=== PATIENT | female | born 1935 | race Caucasian/White ===

== ENCOUNTER 2017-11-23 09:44 | Emergency (ER) | payer OTHER ==
[~2017-11-23] VITALS: Ht 167.6 cm; Wt 67.9 kg
[2017-11-23 09:54] VITALS: TEMP 36.8; Ht 167.6 cm; Wt 67.9 kg
--- NOTE | 2017-11-23 10:20 | EMERGENCY ROOM VISIT NOTE ---
History Report prepared by Homer: Rafa Esquivel Under the Supervision of: Dr. Oscar Paez M.D. 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 Negative abdominal pain and falls. The patient states that she was in an accident several years ago when she injured her right knee. She notes that her right knee is bothering her. She uses a walker to ambulate. She notes that she has been using a topical medication for her knee. The patient resides at [facility]. HPI is limited secondary to patient's mental state. 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 She denies any falls. Review of Systems ROS is limited secondary to patient's mental state. Past Medical & Surgical Medical Problems: (1) Dementia (2) Osteoarthritis Family History No pertinent family history reported. Social History Smoking Status: Never Smoker Smokeless Tobacco Use: No Alcohol Use: none Drug Use: none Housing Status: assisted Occupation Status: unemployed Current/Historical Medications Scheduled Buspirone HCl (Buspirone HCl), 10 MG PO QAM Loratadine (Claritin), 10 MG PO DAILY Multivitamin (Multivitamin), 1 TAB PO DAILY Sennosides-Docusate Sodium (Senna S), 1 TAB PO BID Scheduled PRN Acetaminophen (Tylenol), 325 MG PO Q4 PRN for Fever Ondansetron Hcl (Zofran), 4 MG PO Q8 PRN for Nausea Allergies Coded Allergies: No Known Allergies (Unverified , 11/23/17) Physical Exam Vital Signs Date Time Temp Pulse Resp B/P (MAP) Pulse Ox O2 Delivery O2 Flow Rate FiO2 11/23/17 12:50 68 20 138/75 95 11/23/17 11:10 84 18 146/82 95 Room Air 11/23/17 09:54 36.8 88 18 127/69 97 Room Air Physical Exam GENERAL: Awake, alert, well-appearing, NAD. GCS 15 HENT: Normocephalic, atraumatic. EYES: Normal conjunctiva. Sclera non-icteric. NECK: Supple. No nuchal rigidity. FROM. RESPIRATORY: CTAB, no rhonchi, wheezing, crackles CARDIAC: RRR, no MRG ABDOMEN: Soft, NTND, BS+ MSK: No chest wall TTP, no LE edema. Large scar over right anterior knee. Right knee greater than left. Without erythema or warmth. Good knee flexion and extension of the knee. NVI distally. NEURO: GCS 15, CN 2-12 intact, moves all 4s on command. tangential thought process. A&Ox2 SKIN: No rash or jaundice noted. Medical Decision & Procedures ER Provider Diagnostic Interpretation: Radiology results as stated below per my review and radiologist interpretation: R KNEE 3 VIEWS CLINICAL HISTORY: 82 years-old Female presenting with prior knee surgery? dementia. TECHNIQUE: Frontal, lateral, and sunrise views of the right knee were obtained. COMPARISON: None. FINDINGS: Osteopenia limits evaluation for nondisplaced fracture. Significant joint space loss in the medial greater than lateral compartments. Osteophytosis. Subchondral sclerosis in the medial compartment. Osteophytosis and significant subchondral irregularity in the patellofemoral compartment. No patellar subluxation. No significant joint effusion. No displaced fracture or acute malalignment. Calcification or postsurgical change noted along the lateral and medial aspects of the joint possibly suggesting prior MCL/LCL injuries. IMPRESSION: No acute osseous injury. Advanced tricompartmental degenerative changes. Electronically signed by: Abhishek Lewis M.D. 11/23/2017 10:46 AM Dictated Date/Time: 11/23/2017 10:44 AM ED Course 1006: The patient was evaluated in room B2. A complete history and physical exam was performed. 1108: I reassessed the patient at this time. She is feeling better and resting comfortably. I discussed the results and treatment plan with the patient. I answered all pertaining questions that she had. She expressed understanding and verbalized agreement. The patient will be discharged home. Medical Decision The patient is a 82 year old white female with a past medical history of dementia and osteoarthritis who presents to the ED with right knee pain beginning an unknown time ago as the patient's history is limited by her dementia. Triage Nursing notes reviewed. The patient's presentation and history were concerning for strain, sprain, dislocation, fracture, GJD, and OA. Patient was seen and evaluated the bedside. Patient does have a history of osteoarthritis as well as dementia. Patient exam does have a noticeable right greater than left knee however there is no effusion. She does have a large surgical scar likely indicative of prior procedure. Patient is able to flex and extend and does not have any neuro deficits distally. Given the patient's crushable history the patient did have knee films were completed. Patient denied wanting any medication for pain control she does not have a lot of pain. Patient does not show any evidence of obvious joint laxity. Patient films which showed advanced tricompartmental syndrome. Patient had no evidence of fracture or dislocation. Patient had good flexion and extension of the knee. Patient's compartments were soft less likely compartment syndrome. No calor or redness less likely hemarthrosis, septic arthritis, gout or pseudogout. Patient was vascularly intact. Patient had no neurovascular deficits. Patient was deemed suitable for outpatient follow-up and treatment. Patient was given strict follow-up, discharge, and return precautions. All questions were answered. Patient was deemed suitable for outpatient follow-up at this time. Patient agreed with the plan of care and was safely discharged home. Medication Reconcilliation Current Medication List: was personally reviewed by me Blood Pressure Screening Patient's blood pressure: Elevated blood pressure Blood pressure disposition: Referred to PCP Impression Primary Impression: Chronic pain of right knee Additional Impressions: Degenerative joint disease of right knee Dementia Scribe Attestation The scribe's documentation has been prepared under my direction and personally reviewed by me in its entirety. I confirm that the note above accurately reflects all work, treatment, procedures, and medical decision making performed by me. Departure Information Dispostion Home / Self-Care Referrals [facility] (PCP) Forms HOME CARE DOCUMENTATION FORM, IMPORTANT VISIT INFORMATION Patient Instructions ED Knee Pain UKO, ED RICE, Knee Pain, My [facility] [address] Additional Instructions Please return to the emergency department if you have worsening or recurrent symptoms not amenable to at-home treatment. Please call for a follow-up appointment with her primary care physician. Please take your medications as prescribed. If you have other concerns and/or complaints please feel free to also call your primary care physician's office or return the ED for further evaluation, management, and treatment. You were found to have an elevated blood pressure today (>120 sytolic or >90 diastolic). Per medicare guidelines, you need to follow up with this blood pressure screening with your Primary Care Physician (PCP). For a new PCP call [phone]. You may take tylenol 1000 mg every 6 hours as needed for pain. Take your medications as prescribed. You have been examined and treated today on an emergency basis only. This is not a substitute for, or an effort to provide, complete comprehensive medical care. It is impossible to recognize and treat all injuries or illnesses in a single emergency department visit. It is therefore important that you follow up closely with [facility], your PCP, and/or your specialist(s). Call as soon as possible for an appointment. Thank you for your time and consideration. I look forward to speaking with you again soon. Please don't hesitate to call us if you have any questions. Problem Qualifiers Additional Impressions: Degenerative joint disease of right knee Osteoarthritis type: unspecified Qualified Codes: M17.11 - Unilateral primary osteoarthritis, right knee Dementia Dementia type: unspecified type Dementia behavioral disturbance: without behavioral disturbance Qualified Codes: F03.90 - Unspecified dementia without behavioral disturbance
--- NOTE | 2017-11-23 10:47 | DIAGNOSTIC IMAGING REPORT ---
R KNEE 3 VIEWS CLINICAL HISTORY: 82 years-old Female presenting with prior knee surgery? dementia. TECHNIQUE: Frontal, lateral, and sunrise views of the right knee were obtained. COMPARISON: None. FINDINGS: Osteopenia limits evaluation for nondisplaced fracture. Significant joint space loss in the medial greater than lateral compartments. Osteophytosis. Subchondral sclerosis in the medial compartment. Osteophytosis and significant subchondral irregularity in the patellofemoral compartment. No patellar subluxation. No significant joint effusion. No displaced fracture or acute malalignment. Calcification or postsurgical change noted along the lateral and medial aspects of the joint possibly suggesting prior MCL/LCL injuries. IMPRESSION: No acute osseous injury. Advanced tricompartmental degenerative changes. Electronically signed by: Abhishek Lewis M.D. 11/23/2017 10:46 AM Dictated Date/Time: 11/23/2017 10:44 AM
[2017-11-23 12:50] VITALS: BP 138/75; PULSE 68; O2SAT 95
[2018-02-05] MEDS ORDERED: MULT-506 PO (10:05)
[2018-02-05] MEDS ORDERED: ACET-1311 PO (10:05)
[2018-02-05] MEDS ORDERED: SENN-91 PO (10:05)
[2018-02-05] MEDS ORDERED: ONDA4TAB65 PO (10:05)
[2018-02-05] MEDS ORDERED: CLR10 PO (10:05)
[2018-02-05] MEDS ORDERED: BSP/10 PO (10:05)
== END 2017-11-23 12:50 | disposition home or self-care (01) ==
LOC: EDBD 09:44 → C.EDB 09:45
DX: M25.561 Pain in right knee (principal); M17.11 Unilateral primary osteoarthritis, right knee; F03.90 Unspecified dementia, unspecified severity, without behavioral disturbance, psychotic disturbance, mood disturbance, and anxiety; Z79.899 Other long term (current) drug therapy

== ENCOUNTER 2018-02-05 19:25 | Emergency (ER) | payer OTHER ==
[~2018-02-05] VITALS: Ht 170.2 cm; Wt 68.6 kg
[~2018-02-05 19:25] MED LIST: ACET-1311 PO; BSP/10 PO; CLR10 PO; MULT-506 PO; ONDA4TAB65 PO; SENN-91 PO
[2018-02-05 19:35] VITALS: TEMP 36.9; Ht 170.2 cm; Wt 68.6 kg
--- NOTE | 2018-02-05 19:41 | EMERGENCY ROOM VISIT NOTE ---
History Report prepared by Homer: Joi Verduzco Under the Supervision of: Dr. Nigel Maciel M.D. First contact with patient: 19:34 Chief Complaint: FACIAL PAIN/INJURY Stated Complaint: FACIAL SWELLING/ EVAL History of Present Illness The patient is a 82 year old female who presents to the Emergency Room with complaints of lower left lip swelling beginning this afternoon. Per nursing staff, the patient was given Benadryl at [facility] but this did not help her symptoms. There was no trauma reported from [facility]. The patient denies having shortness of breath or tightness of her throat. History is limited secondary to dementia. Source of History: patient, nursing staff History Limited By: dementia Onset: this afternoon Position: lip (left lower ) Quality: other (swelling) Associated Symptoms: No SOB Review of Systems Limited ROS secondary to dementia. Past Medical & Surgical Medical Problems: (1) Dementia (2) Osteoarthritis Family History Unable to obtain medical history sheet secondary to dementia. Social History Smoking Status: Unknown if Ever Smoked Alcohol Use: none Drug Use: none Housing Status: [facility] Occupation Status: unemployed Current/Historical Medications Scheduled Buspirone HCl (Buspirone HCl), 10 MG PO QAM Diphenhydramine Hcl (Benadryl Allergy), 1 CAP PO PRN Loratadine (Claritin), 10 MG PO DAILY Mirtazapine Soltab (Remeron Soltab), 15 MG PO HS Multivitamin (Multivitamin), 1 TAB PO DAILY Prednisone (Prednisone), 2 TAB PO DAILY Sennosides-Docusate Sodium (Senna S), 1 TAB PO BID Scheduled PRN Acetaminophen (Tylenol), 325 MG PO Q4 PRN for Fever Lorazepam (Ativan), 0.5 MG PO Q8 PRN for Anxiety Ondansetron Hcl (Zofran), 4 MG PO Q8 PRN for Nausea Allergies Coded Allergies: No Known Allergies (Unverified , 11/23/17) Physical Exam Vital Signs Date Time Temp Pulse Resp B/P (MAP) Pulse Ox O2 Delivery O2 Flow Rate FiO2 02/05/18 21:30 80 20 153/98 98 Room Air 02/05/18 19:39 83 02/05/18 19:35 36.9 88 20 128/74 96 Room Air Physical Exam GENERAL: Patient is in no acute distress. HEENT: No uvular edema. Tongue is slightly swollen with some mild swelling/ edema to the underside of the tongue as well. There is lower lip edema. Moist mucous membranes. No pharyngitis. NECK: No stridor, no adenopathy, no meningismus, trachea is midline. LUNGS: Clear to auscultation bilaterally, no wheeze, no rhonchi, breath sounds equal. HEART: Without murmurs gallops or rubs, regular rate and rhythm. ABDOMEN: Soft, nontender, bowel sounds positive, no hernias, no peritonitis. EXTREMITIES: No cyanosis. Mild bilateral pedal edema. Full range of motion of all the joints without pain or difficulty, no signs for acute trauma. NEUROLOGIC: Awake and oriented. Moving all extremities. Confusion consistent with dementia. SKIN: No rash, no jaundice, no diaphoresis. No hives. Medical Decision & Procedures Medications Administered Medications (Trade) Dose Ordered Sig/Corby Route Start Time Stop Time Status Last Admin Dose Admin Prednisone (PredniSONE TAB) 60 mg NOW STAT PO 02/05/18 19:44 02/05/18 19:45 DC 02/05/18 19:59 60 MG ED Course 1934: The patient was evaluated in room B2. A complete history and physical exam was performed. 1943: Ordered Prednisone 60 mg PO. 2239: I spoke to the pharmacist who states that the only medications on the patient's list that may cause swelling are Zofran or Claritin, but that this is rare. 2100: Reevaluated the patient. Discussed results and discharge instructions: She verbalized understanding and agreement. The patient is ready for discharge. Medical Decision The patient is a 82 year old female who presents to the ED with complaints of left lower lip swelling. Differential diagnoses considered include angioedema, allergic reaction, uvular edema, pharyngitis, anaphylaxis, and medication reaction. The patient presents with some lower lip edema. This has been occurring for the last several hours this afternoon. She had been given Benadryl without any change in her symptoms. On exam, the patient does have some edema to the tongue and the lower lip. There is no uvular edema. There is no stridor, no hives. No wheezing. She is not toxic. She has no complaints. I did have pharmacy look through her medications. Loratadine can cause lipedema. She did receive this tablet today at around 11 AM, before the reaction was noted. The patient received oral prednisone. She was watched here for over 2 hours, her lymphedema seems improved, she is in no distress. She is being discharged. I will have them hold the loratadine for now. She can use prednisone for the next few days to hopefully improve things even more. If things are worsening, she can be returned. Medication Reconcilliation Current Medication List: was personally reviewed by me Blood Pressure Screening Patient's blood pressure: Normal blood pressure Impression Primary Impression: Lip edema Scribe Attestation The scribe's documentation has been prepared under my direction and personally reviewed by me in its entirety. I confirm that the note above accurately reflects all work, treatment, procedures, and medical decision making performed by me. Departure Information Dispostion Home / Self-Care Prescriptions Prednisone (Prednisone) 20 Mg Tab 2 TAB PO DAILY for 3 Days, #6 TAB Prov: Nigel Maciel M.D. 02/05/18 Referrals [facility] (PCP) Forms HOME CARE DOCUMENTATION FORM, IMPORTANT VISIT INFORMATION Patient Instructions My [facility] Additional Instructions Loratadine can sometimes cause lip edema--this may be the culprit--recommend holding this med for now--talk with her doctor about an alternative prednisone daily for 3 more days return if worsening sleep with the head elevated some to help the swelling
[2018-02-05] MEDS ORDERED: LORA-741 PO (19:55)
[2018-02-05] MEDS ORDERED: MIRT15TA2 PO (19:55)
[2018-02-05] MEDS ORDERED: DIPH25CA65 PO (19:55)
[2018-02-05] MEDS ORDERED: PRED20TA PO (21:15)
[2018-02-05 21:30] VITALS: BP 153/98; PULSE 80; O2SAT 98
== END 2018-02-05 22:03 | disposition home or self-care (01) ==
LOC: EDBD 19:25 → C.EDB 19:27
DX: R22.0 Localized swelling, mass and lump, head (principal); F03.90 Unspecified dementia, unspecified severity, without behavioral disturbance, psychotic disturbance, mood disturbance, and anxiety

== ENCOUNTER 2018-04-10 10:12 | Emergency (ER) | payer OTHER ==
[~2018-04-10] VITALS: Ht 167.6 cm; Wt 66.3 kg
[~2018-04-10 10:12] MED LIST changes: +DIPH25CA65 PO; +LORA-741 PO; +MIRT15TA2 PO
[2018-04-10 10:28] VITALS: Ht 167.6 cm; Wt 66.3 kg
[2018-04-10] MEDS ORDERED: BSP15 PO (10:34)
[2018-04-10] MEDS ORDERED: SULF800T23 PO ×2 (10:34→12:13)
[2018-04-10 11:01] LABS: BASO % 0.3 %; BASO ABS # 0.04 K/uL (0-0.2); EOS % 0.7 %; EOS ABS # 0.08 K/uL (0-0.5); HEMATOCRIT 45.8 % (37-47); HEMOGLOBIN 15.6 g/dL (12.0-16.0); IG# 0.03 K/uL (0.00-0.02); LYMPH % 13.7 %; LYMPH ABS # 1.65 K/uL (1.2-3.4); MEAN CELL VOLUME 93.5 fL (80-100); MEAN CORPUSCULAR HEMOGLOBIN 31.8 pg (25-34); MEAN CORPUSCULAR HGB CONC 34.1 g/dl (32-36); MEAN PLATELET VOLUME 9.7 fL (7.4-10.4); MONO % 9.6 %; MONO ABS # 1.16 K/uL (0.11-0.59); NEUT % 75.5 %; NEUT ABS # 9.08 K/uL (1.4-6.5); PLATELET COUNT 346 K/uL (130-400); RED CELL DISTRIBUTION WIDTH CV 13.7 % (11.5-14.5); RED CELL DISTRIBUTION WIDTH SD 47.1 fL (36.4-46.3); WHITE BLOOD COUNT 12.04 K/uL (4.8-10.8)
[2018-04-10 11:13] LABS: PTT PATIENT 21.9 SECONDS (21.0-31.0)
--- NOTE | 2018-04-10 11:28 | DIAGNOSTIC IMAGING REPORT ---
CHEST 2 VIEWS ROUTINE CLINICAL HISTORY: sternal lump STERNAL MASS COMPARISON STUDY: No previous studies for comparison. FINDINGS: The study is limited from a technical standpoint. Examination is rotated. Posterior lungs are excluded on the provided lateral view. The heart is normal in size. There is no failure. There is no focal pulmonary consolidation. There are no pleural effusions.[ IMPRESSION: Technically limited study. No acute findings. Electronically signed by: Ej Reina M.D. 04/10/2018 11:26 AM Dictated Date/Time: 04/10/2018 11:25 AM
[2018-04-10 11:35] LABS: ALBUMIN 3.8 gm/dl (3.4-5.0); CALCIUM 10.8 mg/dl (8.5-10.1); CKMB 0.7 ng/ml (0.5-3.6); CREATININE 1.19 mg/dl (0.60-1.20); POTASSIUM 4.7 mmol/L (3.5-5.1); TOTAL PROTEIN 7.9 gm/dl (6.4-8.2)
[2018-04-10] MEDS ORDERED: ACETAMINOPHEN 325 MG TAB PO STA (13:02)
[2018-04-10 14:19] VITALS: BP 145/100; PULSE 83; O2SAT 98
--- NOTE | 2018-04-10 14:19 | EMERGENCY ROOM VISIT NOTE ---
ED Visit Note First contact with patient: 10:22 I have personally evaluated this patient examined her and reviewed the pertinent labs and data. I have discussed the case with Carmine Ramos, the physician assistant program manager and agree with the plan. Please refer to the PA note. This patient was has severe dementia was brought in for possible pain. She is very confused at baseline. We did an extensive workup and her white count is mildly elevated but she has no fever . she does get frequent UTIs. She is baseline combative and would not tolerate a urine cath and we have opted to treat her empirically. There is nothing to suggest cardiac disease. I talked to the daughter at length. The patient appears in no distress and we are going to [facility] to the [facility] on [facility].
--- NOTE | 2018-04-14 09:53 | EMERGENCY ROOM VISIT NOTE ---
History First contact with patient: 10:22 Chief Complaint: OTHER COMPLAINT Stated Complaint: EVAL History of Present Illness The patient is a 83 year old white female who presents to the Emergency Room with her daughter. Her daughter states the patient was complaining of significant diffuse pain earlier today. Patient is severely demented. She is currently a resident at [facility]. At the moment the patient does not appear to have any discomfort. She has no complaints. She is significantly agitated and is attempting to spit on everyone. There is no known trauma. When asked if she has pain, the patient replies "no". She denies any shortness of breath, abdominal pain, or chest pain. No radicular pain. Her daughter would also like her sternum to be evaluated. She has noticed a lump over the upper portion of the sternum. She does not believe it was as prominent previously. She only noticed today. Review of Systems Unable to be completed secondary to patient's dementia. Past Medical/Surgical History Medical Problems: (1) Dementia (2) Osteoarthritis Family History Noncontributory. Parents are . Social History Smoking Status: Former Smoker Smokeless Tobacco Use: No Alcohol Use: none Drug Use: none Housing Status: shelter Occupation Status: unemployed, retired Current/Historical Medications Scheduled Buspirone HCl (Buspirone HCl), 15 MG PO DAILY Loratadine (Claritin), 10 MG PO DAILY Mirtazapine Soltab (Remeron Soltab), 15 MG PO HS Multivitamin (Multivitamin), 1 TAB PO DAILY Sennosides-Docusate Sodium (Senna S), 1 TAB PO BID Scheduled PRN Acetaminophen (Tylenol), 650 MG PO Q4 PRN for Fever Lorazepam (Ativan), 0.5 MG PO Q8 PRN for Anxiety Ondansetron Hcl (Zofran), 4 MG PO Q8 PRN for Nausea Allergies Coded Allergies: No Known Allergies (Unverified , 04/13/18) Physical Exam Vital Signs Date Time Temp Pulse Resp B/P (MAP) Pulse Ox O2 Delivery O2 Flow Rate FiO2 04/10/18 14:19 83 22 145/100 98 04/10/18 12:26 80 16 96 Room Air 04/10/18 10:28 93 20 145/108 97 Room Air 04/10/18 10:28 107 Physical Exam General: Frail, thin, elderly white female, in no acute distress. Clearly agitated. Laying on a bed. Demented. Skin: Warm and dry with fair turgor. No rashes or lesions. No ecchymosis or erythema. The patient is not diaphoretic. No abrasions. HEENT: Normocephalic atraumatic. Eyes PERRLA, EOMI. No conjunctiva or scleral injection. Heart: Heart RRR. No MGR. Peripheral pulses are 2+. Lungs: Lungs are clear to auscultation. No crackles rhonchi or wheezing. Good air movement. The patient is able to take a deep breath. Abdomen: Abdomen was inspected, auscultated, and palpated. Bowel sounds present x 4. Soft, nontender to palpation. No hepato-splenomegaly. No masses noted. No rebound. Musculoskeletal: Gross motor function of the upper and lower extremities is intact and unremarkable. Intact passive and active motion to the shoulders, elbows, wrists, hips, knees, and ankles. No complaints of pain with palpation over her cervical, thoracic, or lumbar spine. Mild peripheral edema is noted in the right leg. Neurologic: Gross sensation is intact across the upper and lower extremities by soft touch. Dementia as stated. Medical Decision & Procedures ER Provider Diagnostic Interpretation: Chest x-ray obtained today was read by radiology is unremarkable. Specifically , the area of the sternoclavicular joint was reviewed and mild osteoarthritic changes are noted. No evidence of fracture or additional mass. These were reviewed by me. EKG obtained today shows sinus tachycardia with possible left atrial enlargement. Nonspecific ST and T-wave abnormalities. No previous EKGs for comparison. This was reviewed with Dr. Echavarria. Laboratory Results 04/10/18 10:50 Red Blood Count 4.90, Mean Corpuscular Volume 93.5, Mean Corpuscular Hemoglobin 31.8, Mean Corpuscular Hemoglobin Concent 34.1, Mean Platelet Volume 9.7, Neutrophils (%) (Auto) 75.5, Lymphocytes (%) (Auto) 13.7, Monocytes (%) (Auto) 9.6, Eosinophils (%) (Auto) 0.7, Basophils (%) (Auto) 0.3, Neutrophils # (Auto) 9.08, Lymphocytes # (Auto) 1.65, Monocytes # (Auto) 1.16, Eosinophils # (Auto) 0.08, Basophils # (Auto) 0.04 04/10/18 10:50 Test 04/10/18 10:50 White Blood Count 12.04 K/uL (4.8-10.8) Red Blood Count 4.90 M/uL (4.2-5.4) Hemoglobin 15.6 g/dL (12.0-16.0) Hematocrit 45.8 % (37-47) Mean Corpuscular Volume 93.5 fL (80-100) Mean Corpuscular Hemoglobin 31.8 pg (25-34) Mean Corpuscular Hemoglobin Concent 34.1 g/dl (32-36) Platelet Count 346 K/uL (130-400) Mean Platelet Volume 9.7 fL (7.4-10.4) Neutrophils (%) (Auto) 75.5 % Lymphocytes (%) (Auto) 13.7 % Monocytes (%) (Auto) 9.6 % Eosinophils (%) (Auto) 0.7 % Basophils (%) (Auto) 0.3 % Neutrophils # (Auto) 9.08 K/uL (1.4-6.5) Lymphocytes # (Auto) 1.65 K/uL (1.2-3.4) Monocytes # (Auto) 1.16 K/uL (0.11-0.59) Eosinophils # (Auto) 0.08 K/uL (0-0.5) Basophils # (Auto) 0.04 K/uL (0-0.2) RDW Standard Deviation 47.1 fL (36.4-46.3) RDW Coefficient of Variation 13.7 % (11.5-14.5) Immature Granulocyte % (Auto) 0.2 % Immature Granulocyte # (Auto) 0.03 K/uL (0.00-0.02) Prothrombin Time 10.4 SECONDS (9.0-12.0) Prothromb Time International Ratio 1.0 (0.9-1.1) Activated Partial Thromboplast Time 21.9 SECONDS (21.0-31.0) Partial Thromboplastin Ratio 0.8 Anion Gap 8.0 mmol/L (3-11) Est Creatinine Clear Calc Drug Dose 34.1 ml/min Estimated GFR () 49.2 Estimated GFR (Non- 42.5 BUN/Creatinine Ratio 23.9 (10-20) Calcium Level 10.8 mg/dl (8.5-10.1) Total Bilirubin 0.4 mg/dl (0.2-1) Aspartate Amino Transf (AST/SGOT) 21 U/L (15-37) Alanine Aminotransferase (ALT/SGPT) 21 U/L (12-78) Alkaline Phosphatase 103 U/L (45-117) Total Creatine Kinase 46 U/L (26-192) Creatine Kinase MB 0.7 ng/ml (0.5-3.6) Creatine Kinase MB Ratio 1.5 (0-3.0) Troponin I 0.017 ng/ml (0-0.045) Total Protein 7.9 gm/dl (6.4-8.2) Albumin 3.8 gm/dl (3.4-5.0) Globulin 4.1 gm/dl (2.5-4.0) Albumin/Globulin Ratio 0.9 (0.9-2) CBC, chemistry panel, PT/INR, CK/CK-MB, and troponin were all obtained. Mild elevation in white count at 12.0, otherwise all labs are unremarkable. UA was not obtained. Medications Administered Medications (Trade) Dose Ordered Sig/Corby Route Start Time Stop Time Status Last Admin Dose Admin Acetaminophen (Tylenol Tab) 650 mg NOW STAT PO 04/10/18 13:02 04/10/18 13:03 DC 04/10/18 14:05 650 MG Tylenol 650 mg p.o. ED Course Patient's daughter was educated regarding today's findings. Conservative care measures were discussed. IV was established. Labs were obtained. Chest x-ray on EKG were obtained. Patient does not seem to have any outward signs of discomfort at this time. I find nothing abnormal at her sternoclavicular joints. This was reviewed with the patient's daughter. She is quite agitated. She is trying to spit on myself and the staff. Mask was placed. She was attempting to hit and scratch the nursing staff. Because of her threat of bodily harm, she was placed in soft mittens. I did hear her threaten the staff multiple times. Labs were unremarkable. No evidence for acute coronary injury, significant electrolyte abnormality, organ dysfunction, or infection. I did have an extended discussion with her daughter regarding the patient's dementia. She will be transitioning to a different facility for memory care. Patient does have a history of frequent UTIs. We were unable to get a urine sample today due to her agitation. I will treat her empirically for possible UTI. Prescription was provided for Bactrim DS 1 pill twice daily 5 days. Return to the ED for any other concerns. Follow-up with her PCP as needed. Maintain hydration and encourage her to maintain her nutrition. Patient was seen in conjunction with Dr. Echavarria, who also evaluated the patient and concurred with today's diagnosis and treatment plan. Medical Decision Possibility of osteoarthritis, ACS, AL, intracranial injury, infection, and medication reaction were considered among others. [place] Drug Monitoring Program Search Results: no issues identified Impression Primary Impression: Dementia Additional Impression: Osteoarthritis Departure Information Dispostion Personal Group Home Condition [employer] Forms WORK / SCHOOL INSTRUCTIONS, HOME CARE DOCUMENTATION FORM, TYLENOL USE, IMPORTANT VISIT INFORMATION Patient Instructions [facility] [employer] Additional Instructions Tylenol 650 mg every 6 hours as needed for discomfort Bactrim 1 pill 2 times a day 5 days Return to the ED for any acute worsening of symptoms Maintain food intake and hydration Problem Qualifiers Primary Impression: Dementia Dementia type: Alzheimer's disease Alzheimer's disease onset: unspecified onset Dementia behavioral disturbance: with behavioral disturbance Qualified Codes: G30.9 - Alzheimer's disease, unspecified; F02.81 - Dementia in other diseases classified elsewhere with behavioral disturbance Additional Impression: Osteoarthritis Osteoarthritis location: multiple joints Osteoarthritis type: primary Qualified Codes: M15.0 - Primary generalized (osteo)arthritis
== END 2018-04-10 14:10 | disposition home or self-care (01) ==
LOC: EDBD 10:12 → C.EDA 10:14
DX: G30.9 Alzheimer's disease, unspecified (principal); F02.81 Dementia in other diseases classified elsewhere, unspecified severity, with behavioral disturbance; M15.0 Primary generalized (osteo)arthritis; Z87.891 Personal history of nicotine dependence

== ENCOUNTER 2018-04-10 19:48 | Emergency (ER) | payer OTHER ==
[~2018-04-10] VITALS: Ht 165.1 cm; Wt 68.3 kg
[~2018-04-10 19:48] MED LIST changes: +BSP15 PO; +SULF800T23 PO
[2018-04-10 19:58] VITALS: BP 153/87; PULSE 102; O2SAT 99; Ht 165.1 cm; Wt 68.3 kg
[2018-04-10] MEDS ORDERED: LORAZEPAM 2 MG/ML 1 ML VIAL IM STA ×2 (20:02→20:29)
--- NOTE | 2018-04-10 21:40 | DIAGNOSTIC IMAGING REPORT ---
HEAD CT NONCONTRAST CT DOSE: HISTORY: fall TECHNIQUE: Multiaxial CT images of the head were performed without the use of intravenous contrast. Automated exposure control was utilized for this study. A dose lowering technique was utilized adhering to the principles of ALARA. Comparison: None. Findings: The paranasal sinuses and mastoid air cells are clear. Motion artifact. Old bilateral jacky holes. No fractures within the calvarium. Mild atrophy and microvascular ischemic changes. There is no definite mass, hematoma, midline shift, acute infarct. 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 Impression: 1. Motion artifact. No definite acute intracranial abnormality. 2. 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 Electronically signed by: Wade Soto M.D. 04/10/2018 9:39 PM Dictated Date/Time: 04/10/2018 9:34 PM
--- NOTE | 2018-04-10 21:51 | DIAGNOSTIC IMAGING REPORT ---
CERVICAL SPINE CT CT DOSE: 1625.62 mGy.cm HISTORY: Neck pain. fall TECHNIQUE: Multiaxial CT images of the cervical spine were performed and reformatted in the sagittal and coronal plane without the use of contrast. A dose lowering technique was utilized adhering to the principles of ALARA. COMPARISON: None. FINDINGS: No fractures. No subluxation. Prevertebral soft tissues and the C1-C2 interval are intact. No pneumothorax. Moderate to severe degenerative disc disease at C4-C7. The C3-C4 facets are fused. A 2.4 cm right thyroid nodule. IMPRESSION: No fractures within the cervical spine. A 2.4 cm right thyroid nodule. Electronically signed by: Wade Soto M.D. 04/10/2018 9:50 PM Dictated Date/Time: 04/10/2018 9:44 PM
--- NOTE | 2018-04-10 22:41 | EMERGENCY ROOM VISIT NOTE ---
History Report prepared by Kellibadrian: Ermelinda Dunham Under the Supervision of: Dr. John uHi D.O. First contact with patient: 19:49 Stated Complaint: FALL, SKIN TEARS History of Present Illness The patient is a 83 year old female who presents to the Emergency Room with complaints of a fall that occurred prior to arrival. She was brought to the ED via EMS. The patient has a history of dementia and arrives to the ED from [facility]. She was seen here in the ED earlier today for a previous fall and was sent home. Pt denies headache, change in vision, fevers, chest pain, shortness of breath, abdominal pain, nausea, vomiting, diarrhea, and pain with urination. History is limited secondary to dementia. 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 A total of 10 systems reviewed and were otherwise negative. Past Medical & Surgical Medical Problems: (1) Dementia (2) Osteoarthritis Social History Smoking Status: Former Smoker Alcohol Use: none Drug Use: none Housing Status: alf Occupation Status: unemployed Current/Historical Medications Scheduled Buspirone HCl (Buspirone HCl), 15 MG PO DAILY Loratadine (Claritin), 10 MG PO DAILY Mirtazapine Soltab (Remeron Soltab), 15 MG PO HS Multivitamin (Multivitamin), 1 TAB PO DAILY Sennosides-Docusate Sodium (Senna S), 1 TAB PO BID Sulfa/Trimethoprim (Bactrim Ds 800MG/160MG), 1 TAB PO BID Sulfamethoxazole-Trimethoprim (Bactrim Ds 800MG/160MG), 1 TAB PO BID Scheduled PRN Acetaminophen (Tylenol), 325 MG PO Q4 PRN for Fever Lorazepam (Ativan), 0.5 MG PO Q8 PRN for Anxiety Ondansetron Hcl (Zofran), 4 MG PO Q8 PRN for Nausea Allergies Coded Allergies: No Known Allergies (Unverified , 04/10/18) Physical Exam Vital Signs Date Time Temp Pulse Resp B/P (MAP) Pulse Ox O2 Delivery O2 Flow Rate FiO2 04/10/18 19:58 102 20 153/87 99 Room Air Physical Exam GENERAL: alert, well appearing, well nourished, no distress, non-toxic HEAD: normal cephalic, atraumatic EYE EXAM: normal conjunctiva, PERRL and EOM's grossly intact OROPHARYNX: no exudate, no erythema, lips, buccal mucosa, and tongue normal and mucous membranes are moist EARS: TMs clear b/l NECK: supple, no nuchal rigidity, no adenopathy, non-tender, CHEST: stable to compression anteriorly and posteriorly LUNGS: clear to auscultation. Normal chest wall mechanics HEART: no murmurs, S1 normal and S2 normal ABDOMEN: abdomen soft, non-tender, normo-active bowel sounds, no masses, no rebound or guarding. PELVIS: stable to compression anteriorly and posteriorly BACK: Back is symmetrical on inspection and there is no deformity, no midline tenderness, no CVA tenderness. UPPER EXTREMITIES: full active and passive range of motion of all joints without tenderness to palpation LOWER EXTREMITIES: full active and passive range of motion of all joints without tenderness to palpation SKIN: Large skin tear over the left neck just above the clavicle. Skin is partially avulsed and rolled up for a total of 8 cm. 4 cm abrasion to left third mid finger. NEURO EXAM: Patient is awake, not oriented to person, place or time. Moving all extremities. Nonfocal. Medical Decision & Procedures ER Provider Diagnostic Interpretation: Radiology results as stated below per my review and the radiologist's interpretation: CERVICAL SPINE CT CT DOSE: 1625.62 mGy.cm HISTORY: Neck pain. fall TECHNIQUE: Multiaxial CT images of the cervical spine were performed and reformatted in the sagittal and coronal plane without the use of contrast. A dose lowering technique was utilized adhering to the principles of ALARA. COMPARISON: None. FINDINGS: No fractures. No subluxation. Prevertebral soft tissues and the C1-C2 interval are intact. No pneumothorax. Moderate to severe degenerative disc disease at C4-C7. The C3-C4 facets are fused. A 2.4 cm right thyroid nodule. IMPRESSION: No fractures within the cervical spine. A 2.4 cm right thyroid nodule. Electronically signed by: Wade Soto M.D. 04/10/2018 9:[address] CT DOSE: HISTORY: fall TECHNIQUE: Multiaxial CT images of the head were performed without the use of intravenous contrast. Automated exposure control was utilized for this study. A dose lowering technique was utilized adhering to the principles of ALARA. Comparison: None. Findings: The paranasal sinuses and mastoid air cells are clear. Motion artifact. Old bilateral jacky holes. No fractures within the calvarium. Mild atrophy and microvascular ischemic changes. There is no definite mass, hematoma, midline shift, acute infarct. 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 Impression: 1. Motion artifact. No definite acute intracranial abnormality. 2. 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 Electronically signed by: Wade Soto M.D. 04/10/2018 9:39 PM Medications Administered Medications (Trade) Dose Ordered Sig/Corby Route Start Time Stop Time Status Last Admin Dose Admin Lorazepam (Ativan Inj) 1 mg NOW STAT IM 04/10/18 20:02 04/10/18 20:03 DC 04/10/18 20:02 1 MG Procedure Laceration repair of left third finger. Wound was cleaned and prepped. Multiple Steri-Strips were placed and the skin approximated nicely. There is no additional bleeding. Patient tolerated procedure well. Wound is a total of 4 cm. Laceration repair to the left neck. She a large avulsion of the skin. It was difficult to retract skin to recover the wound. Wound was cleaned with Betadine and water. Was approximated as best as we could during her agitation. Stitches were not used as she is agitated and they agreed these would be picked up. Steri-Strips were used. Wound was approximated as best as possible with her thin skin. Patient tolerated procedure well. ED Course ED COURSE: Vital signs were reviewed and showed the patient is situationally hypertensive. The patients medical record was reviewed The above diagnostic studies were performed and reviewed. ED treatments and interventions as stated above. 1950: The patient was evaluated in room B4. A complete history and physical examination was performed. 2001: Ativan 1 mg IM. 2007: I spoke with Sri at [facility]. She states the patient fell, so she went to help her up, but the patient became agitated and wouldn't let her, so she called EMS. Sri states the patient is at her baseline mentation and is "normally agitated". 2028: Ativan 1 mg IM. 2199: Upon reevaluation, the patient is resting comfortably. I discussed my findings with the patient and she understands and agrees with the treatment plan. Based on the patients age, coexisting illnesses, exam and lab findings the decision to treat as an outpatient was made. The patient remained stable while under my care. The patient appeared well at the time of discharge. Medical Decision Differential diagnoses include major intracranial, cervical, spinal, thoracic, abdominal, pelvic and neurologic injury. Fracture, contusion, sprain, strain, laceration, abrasions included as well. Patient is a 83-year-old female with past medical history of dementia that presents after her second fall today. She was already here in the ER this morning for fall and agitation. Blood work was obtained and she was treated for possible UTI although no UA was obtained that she was too agitated. Tonight she is once again agitated and spitting and hitting nursing staff and myself. She was given a small dose of Ativan. We are able to obtain a CT of her head and neck. These were unremarkable. She had 2 skin tears. One on her left middle finger which was repaired and approximated nicely. She had another on her neck which was large and due to her agitation was difficult to pull together. With her constant picking and pulling I did not feel it was brice to place stitches. We elected to use Steri-Strips on both the hand and neck. Her skin is extremely brittle. With 4 people we are eventually able to apply the Steri-Strips all distracting her. These will need to be kept clean. She was not sedated as I felt this was an unnecessary risk with her agitation and age for limited benefit. Daughter was updated at bedside. Patient was discharged back to alf. She is already on antibiotics and this will also help prevent any additional infection from lacerations. Medication Reconcilliation Current Medication List: was personally reviewed by me Blood Pressure Screening Patient's blood pressure: Elevated blood pressure Blood pressure disposition: Elevated BP felt to be situational Impression Primary Impression: Finger laceration Additional Impressions: Skin tear Fall Scribe Attestation The scribe's documentation has been prepared under my direction and personally reviewed by me in its entirety. I confirm that the note above accurately reflects all work, treatment, procedures, and medical decision making performed by me. Departure Information Dispostion Home / Self-Care Referrals SAMUEL IRIZARRY (PCP) Patient Instructions ED Laceration Facial Sutr Tape, [facility] Additional Instructions Please follow up with your primary care doctor with in the next 24 hours. Any worsening of your symptoms, please return to the ED immediately. This includes any fevers greater than 100.4, worsening pain, chest pain, shortness breath, persistent nausea, vomiting, unable to eat or drink, or any other concerning signs or symptoms from your standpoint. Please have Steri-Strips removed within 7 days. Please try to keep the wounds clean and dry. Problem Qualifiers Primary Impression: Finger laceration Encounter type: initial encounter Finger: middle finger Damage to nail status: without damage Foreign body presence: unspecified Laterality: left Qualified Codes: S61.213A - Laceration without foreign body of left middle finger without damage to nail, initial encounter Additional Impressions: Fall Encounter type: initial encounter Qualified Codes: W19.XXXA - Unspecified fall, initial encounter
== END 2018-04-10 22:49 | disposition home or self-care (01) ==
LOC: EDBD 19:48 → C.EDB 19:49
DX: S61.213A Laceration without foreign body of left middle finger without damage to nail, initial encounter (principal); S11.90XA Unspecified open wound of unspecified part of neck, initial encounter; W19.XXXA Unspecified fall, initial encounter; F03.90 Unspecified dementia, unspecified severity, without behavioral disturbance, psychotic disturbance, mood disturbance, and anxiety; M19.90 Unspecified osteoarthritis, unspecified site; Z91.81 History of falling; Z87.891 Personal history of nicotine dependence

== ENCOUNTER 2018-04-13 08:47 | Emergency (ER) | payer OTHER ==
[~2018-04-13] VITALS: Ht 170.2 cm; Wt 67.0 kg
[~2018-04-13 08:47] MED LIST changes: -BSP/10 PO; -DIPH25CA65 PO
[2018-04-13 08:59] VITALS: Ht 170.2 cm; Wt 67.0 kg
--- NOTE | 2018-04-13 09:42 | EMERGENCY ROOM VISIT NOTE ---
History Report prepared by Homer: Farhat Hernandez Under the Supervision of: Dr. Oscar Paez M.D. First contact with patient: 09:34 Chief Complaint: FALL Stated Complaint: FALL History of Present Illness The patient is an 83 year old white female with a past medical history of dementia and osteopetrosis who presents to the ED after a fall that occurred prior to arrival. Per EMS, the patient has been falling more often. This morning she fell and obtained bruises and abrasions to her right shoulder. The patient was recently evaluated in the ED three days ago for a fall. HPI limited secondary to the patient's dementia. Source of History: EMS, nursing staff History Limited By: dementia Review of Systems ROS limited secondary to the patient's dementia. Past Medical & Surgical Medical Problems: (1) Dementia (2) Osteoarthritis Family History Unobtainable secondary to the patient's dementia. Social History Smoking Status: Former Smoker Alcohol Use: none Drug Use: none Housing Status: usp Occupation Status: unemployed Current/Historical Medications Scheduled Buspirone HCl (Buspirone HCl), 15 MG PO DAILY Loratadine (Claritin), 10 MG PO DAILY Mirtazapine Soltab (Remeron Soltab), 15 MG PO HS Multivitamin (Multivitamin), 1 TAB PO DAILY Sennosides-Docusate Sodium (Senna S), 1 TAB PO BID Scheduled PRN Acetaminophen (Tylenol), 650 MG PO Q4 PRN for Fever Lorazepam (Ativan), 0.5 MG PO Q8 PRN for Anxiety Ondansetron Hcl (Zofran), 4 MG PO Q8 PRN for Nausea Allergies Coded Allergies: No Known Allergies (Unverified , 04/13/18) Physical Exam Vital Signs Date Time Temp Pulse Resp B/P (MAP) Pulse Ox O2 Delivery O2 Flow Rate FiO2 04/13/18 16:54 79 04/13/18 16:30 83 20 125/66 100 04/13/18 15:06 75 18 98 Room Air 04/13/18 13:03 78 04/13/18 12:57 79 18 125/66 100 Room Air 04/13/18 10:57 99 Room Air 04/13/18 10:55 80 16 100 Room Air 04/13/18 10:12 96 Room Air 04/13/18 09:24 80 04/13/18 08:59 36.7 88 16 123/75 100 Room Air Physical Exam GENERAL: Awake, alert, well-appearing, NAD HENT: Normocephalic, Significant ecchymosis over the right side of the face. EYES: Normal conjunctiva. Sclera non-icteric. PERRL. No anisocoria. NECK: Supple. No nuchal rigidity. FROM. RESPIRATORY: CTAB, no rhonchi, wheezing, crackles CARDIAC: RRR, no MRG ABDOMEN: Soft, NTND, BS+ MSK: No chest wall TTP, no LE edema. Bruising to the bilateral forearm. Abrasion to the right shoulder. NEURO: moves all 4s on command SKIN: No rash or jaundice noted. Medical Decision & Procedures ER Provider Diagnostic Interpretation: Radiology results as stated below per my review and radiologist interpretation: R SHOULDER MIN 2 VIEWS ROUTINE HISTORY: 83 years-old Female s/p fall acute right shoulder pain status post fall COMPARISON: Chest radiograph of same day TECHNIQUE: 2 views of the right shoulder FINDINGS: Moderate to severe right glenohumeral with moderate AC joint osteoarthritis. The bones appear moderately demineralized. No acute fracture or dislocation is identified. Mild soft tissue swelling about the shoulder. IMPRESSION: No acute fracture or dislocation identified. The above report was generated using voice recognition software. It may contain grammatical, syntax or spelling errors. Electronically signed by: Vipin Lima M.D. 04/13/2018 10:02 AM Dictated Date/Time: 04/13/2018 10:[address] WITHOUT CONTRAST CLINICAL HISTORY: EVALUATE FOR TRAUMA/INJURY COMPARISON STUDY: Head CT April 10, 2018. TECHNIQUE: A maxillofacial CT was performed without IV contrast. Coronal and sagittal reformats were viewed. A dose lowering technique was utilized adhering to the principles of ALARA. FINDINGS: Right periorbital soft tissue swelling consistent with a contusion. The right globe is intact. There is no retrobulbar hematoma. There is no acute facial fracture. Alignment of the temporomandibular joints is anatomic. The head CT will be reported separately. There is minimal sinus mucosal thickening. IMPRESSION: 1. No acute facial fracture. 2. Right periorbital soft tissue swelling consistent with a contusion. Right globe intact with no retrobulbar hematoma. Electronically signed by: Dejan Noyola M.D. 04/13/2018 12:10 PM Dictated Date/Time: 04/13/2018 12:[address] OF THE HEAD WITHOUT CONTRAST CLINICAL HISTORY: Fall. COMPARISON STUDY: Head CT April 10, 2018. TECHNIQUE: Helical axial images of the head were obtained without IV contrast. Automated exposure control was utilized for the study. A dose lowering technique was utilized adhering to the principles of ALARA. FINDINGS: No acute intracranial hemorrhage, midline shift or mass effect is present. Ventricular system is unremarkable for age. Basilar cisterns are patent. There are are no extra-axial collections. An old right and CTA territory infarct within several malacia is noted. This is unchanged. No calvarial fracture is identified. Visualized portions of the sinuses and mastoid air cells are clear. There is a right periorbital contusion. There is no retrobulbar hematoma. Right globe is intact. IMPRESSION: 1. No acute intracranial findings. 2. Old right MCA territory infarct. 3. Right periorbital soft tissue swelling/contusion right globe intact with no retrobulbar hematoma. Electronically signed by: Dejan Noyola M.D. 04/13/2018 12:01 PM Dictated Date/Time: 04/13/2018 11:53 AM CHEST ONE VIEW PORTABLE HISTORY: EVALUATE FOR TRAUMA/INJURY COMPARISON: Chest 04/10/2018. FINDINGS: The lungs are clear. Cardiac silhouette is normal in size. No pleural effusions. No pneumothorax. IMPRESSION: No acute process. Electronically signed by: Wade Soto M.D. 04/13/2018 10:03 AM Dictated Date/Time: 04/13/2018 10:01 AM CERVICAL SPINE W/O CT DOSE: 1356.81 mGy.cm CLINICAL HISTORY: 83 years-old Female with EVALUATE FOR TRAUMA/INJURY. Acute neck pain status post trauma COMPARISON: CT cervical spine 04/10/2018. TECHNIQUE: Multiple axial CT images of the cervical spine were obtained without contrast. A dose lowering technique was utilized adhering to the principles of ALARA. FINDINGS: No acute cervical spine fracture or subluxation. Mastoid air cells and middle ear cavities are clear. Unchanged grade 1 anterolisthesis C3 on C4 secondary to facet disease. Multilevel intervertebral disc space narrowing with spondylitic spurring and facet arthrosis redemonstrated which is unchanged from comparison study 04/10/2018. Increased kyphotic curvature of the thoracic spine limits of attenuation of the central canal and neuroforamen. The bones appear moderately demineralized. No pneumothorax. Heterogeneous 2.4 cm nodule of the right thyroid with nodules seen about the left thyroid lobe. Atherosclerosis of the carotid vasculature. IMPRESSION: No acute cervical spine fracture or subluxation. The above report was generated using voice recognition software. It may contain grammatical, syntax or spelling errors. Electronically signed by: Vipin Lima M.D. 04/13/2018 11:59 AM Dictated Date/Time: 04/13/2018 11:55 AM Laboratory Results 04/13/18 10:09 Red Blood Count 4.25, Mean Corpuscular Volume 92.5, Mean Corpuscular Hemoglobin 31.8, Mean Corpuscular Hemoglobin Concent 34.4, Mean Platelet Volume 9.9, Neutrophils (%) (Auto) 77.5, Lymphocytes (%) (Auto) 12.1, Monocytes (%) (Auto) 9.5, Eosinophils (%) (Auto) 0.4, Basophils (%) (Auto) 0.3, Neutrophils # (Auto) 9.45, Lymphocytes # (Auto) 1.48, Monocytes # (Auto) 1.16, Eosinophils # (Auto) 0.05, Basophils # (Auto) 0.04 04/13/18 10:09 Test 04/13/18 10:09 04/13/18 10:45 White Blood Count 12.21 K/uL (4.8-10.8) Red Blood Count 4.25 M/uL (4.2-5.4) Hemoglobin 13.5 g/dL (12.0-16.0) Hematocrit 39.3 % (37-47) Mean Corpuscular Volume 92.5 fL (80-100) Mean Corpuscular Hemoglobin 31.8 pg (25-34) Mean Corpuscular Hemoglobin Concent 34.4 g/dl (32-36) Platelet Count 339 K/uL (130-400) Mean Platelet Volume 9.9 fL (7.4-10.4) Neutrophils (%) (Auto) 77.5 % Lymphocytes (%) (Auto) 12.1 % Monocytes (%) (Auto) 9.5 % Eosinophils (%) (Auto) 0.4 % Basophils (%) (Auto) 0.3 % Neutrophils # (Auto) 9.45 K/uL (1.4-6.5) Lymphocytes # (Auto) 1.48 K/uL (1.2-3.4) Monocytes # (Auto) 1.16 K/uL (0.11-0.59) Eosinophils # (Auto) 0.05 K/uL (0-0.5) Basophils # (Auto) 0.04 K/uL (0-0.2) RDW Standard Deviation 44.8 fL (36.4-46.3) RDW Coefficient of Variation 13.2 % (11.5-14.5) Immature Granulocyte % (Auto) 0.2 % Immature Granulocyte # (Auto) 0.03 K/uL (0.00-0.02) Prothrombin Time 10.4 SECONDS (9.0-12.0) Prothromb Time International Ratio 1.0 (0.9-1.1) Activated Partial Thromboplast Time 23.8 SECONDS (21.0-31.0) Partial Thromboplastin Ratio 0.9 Anion Gap 6.0 mmol/L (3-11) Est Creatinine Clear Calc Drug Dose 52.1 ml/min Estimated GFR () 78.4 Estimated GFR (Non- 67.6 BUN/Creatinine Ratio 26.2 (10-20) Calcium Level 9.8 mg/dl (8.5-10.1) Total Bilirubin 0.6 mg/dl (0.2-1) Direct Bilirubin 0.2 mg/dl (0-0.2) Aspartate Amino Transf (AST/SGOT) 35 U/L (15-37) Alanine Aminotransferase (ALT/SGPT) 25 U/L (12-78) Alkaline Phosphatase 92 U/L (45-117) Troponin I 0.029 ng/ml (0-0.045) Total Protein 7.2 gm/dl (6.4-8.2) Albumin 3.3 gm/dl (3.4-5.0) Urine Color YELLOW Urine Appearance CLEAR (CLEAR) Urine pH 5.5 (4.5-7.5) Urine Specific [place] 1.023 (1.000-1.030) Urine Protein NEG (NEG) Urine Glucose (UA) NEG (NEG) Urine Ketones 1+ (NEG) Urine Occult Blood NEG (NEG) Urine Nitrite NEG (NEG) Urine Bilirubin NEG (NEG) Urine Urobilinogen NEG (NEG) Urine Leukocyte Esterase SMALL (NEG) Urine WBC (Auto) 10-30 /hpf (0-5) Urine RBC (Auto) 0-4 /hpf (0-4) Urine Hyaline Casts (Auto) 10-30 /lpf (0-5) Urine Epithelial Cells (Auto) >30 /lpf (0-5) Urine Bacteria (Auto) NEG (NEG) Urine Renal Epithelial Cells 5-10 /lpf (0-5) Urine Pathogenic Casts /lpf (0) Laboratory results reviewed by me ECG Per My Interpretation Indication: weakness Rate (beats per minute): 80 Rhythm: normal sinus Findings: T-wave inversion (Lead III), other (Normal axis. Normal intervals.) ED Course 0941: The patient was evaluated in room A11B. A complete history and physical exam was performed. 1324: I reevaluated the patient and discussed current test results with her family. The family would like to discuss placement options. 1408: The patient is pending placement. 1728: Transportation is here. I reevaluated the patient and spoke with the patient's family. The patient has been accepted to a memory care facility. Medical Decision Nursing notes reviewed. Ancillary studies and prior records reviewed. The patient is an 83 year old white female with a past medical history of dementia and osteopetrosis who presents to the ED after a fall that occurred prior to arrival. Differential diagnosis: Etiologies such as metabolic, infection, hypo/hyperglycemia, electrolyte abnormalities, cardiac sources, intracerebral event, toxicologic, neurologic, as well as others were entertained. Patient was seen and evaluated the bedside. Patient's exam is severely limited secondary to dementia. Patient does follow commands. The patient does have an abrasion to the right shoulder does have some ecchymosis to the face. Patient did have blood work completed, EKG, troponin, CT brain, CT face, CT C- spine, chest x-ray and right shoulder film.. Patient's plain films were negative. Patient's blood work fairly unremarkable. EKG nonischemic. Patient's plain films as well as CTs were negative. Patient has had some recurrent falls. She does have some issues secondary to falls with some skin tears. I did discuss the patient with the daughter at bedside. We did discuss possible placement and increased care. I discussed this with the piano case and bench assembler who evaluated the patient and discussed the care with the family member. manager user experience help facilitate transfer to a higher level memory care facility. A cognitive screening was completed and signed. Transport was arranged and the patient was transferred for further evaluation and treatment given her multiple falls and wound care needs. Head Trauma GCS Score: 13 Medication Reconcilliation Current Medication List: was personally reviewed by me Blood Pressure Screening Patient's blood pressure: Normal blood pressure Blood pressure disposition: Did not require urgent referral Impression Primary Impression: Fall Additional Impressions: Contusion of multiple sites Dementia Scribe Attestation The scribe's documentation has been prepared under my direction and personally reviewed by me in its entirety. I confirm that the note above accurately reflects all work, treatment, procedures, and medical decision making performed by me. Departure Information Dispostion Other (Memory care facility) Referrals SAMUEL IRIZARRY (PCP) Forms HOME CARE DOCUMENTATION FORM, IMPORTANT VISIT INFORMATION Patient Instructions My [facility] Problem Qualifiers Primary Impression: Fall Encounter type: initial encounter Qualified Codes: W19.XXXA - Unspecified fall, initial encounter Additional Impressions: Dementia Dementia type: unspecified type Dementia behavioral disturbance: without behavioral disturbance Qualified Codes: F03.90 - Unspecified dementia without behavioral disturbance
--- NOTE | 2018-04-13 10:03 | DIAGNOSTIC IMAGING REPORT ---
R SHOULDER MIN 2 VIEWS ROUTINE HISTORY: 83 years-old Female s/p fall acute right shoulder pain status post fall COMPARISON: Chest radiograph of same day TECHNIQUE: 2 views of the right shoulder FINDINGS: Moderate to severe right glenohumeral with moderate AC joint osteoarthritis. The bones appear moderately demineralized. No acute fracture or dislocation is identified. Mild soft tissue swelling about the shoulder. IMPRESSION: No acute fracture or dislocation identified. The above report was generated using voice recognition software. It may contain grammatical, syntax or spelling errors. Electronically signed by: Vipin Lima M.D. 04/13/2018 10:02 AM Dictated Date/Time: 04/13/2018 10:01 AM
--- NOTE | 2018-04-13 10:04 | DIAGNOSTIC IMAGING REPORT ---
CHEST ONE VIEW PORTABLE HISTORY: EVALUATE FOR TRAUMA/INJURY COMPARISON: Chest 04/10/2018. FINDINGS: The lungs are clear. Cardiac silhouette is normal in size. No pleural effusions. No pneumothorax. IMPRESSION: No acute process. Electronically signed by: Wade Soto M.D. 04/13/2018 10:03 AM Dictated Date/Time: 04/13/2018 10:01 AM
[2018-04-13 10:20] LABS: BASO % 0.3 %; BASO ABS # 0.04 K/uL (0-0.2); EOS % 0.4 %; EOS ABS # 0.05 K/uL (0-0.5); HEMATOCRIT 39.3 % (37-47); HEMOGLOBIN 13.5 g/dL (12.0-16.0); IG# 0.03 K/uL (0.00-0.02); LYMPH % 12.1 %; LYMPH ABS # 1.48 K/uL (1.2-3.4); MEAN CELL VOLUME 92.5 fL (80-100); MEAN CORPUSCULAR HEMOGLOBIN 31.8 pg (25-34); MEAN CORPUSCULAR HGB CONC 34.4 g/dl (32-36); MEAN PLATELET VOLUME 9.9 fL (7.4-10.4); MONO % 9.5 %; MONO ABS # 1.16 K/uL (0.11-0.59); NEUT % 77.5 %; NEUT ABS # 9.45 K/uL (1.4-6.5); PLATELET COUNT 339 K/uL (130-400); RED CELL DISTRIBUTION WIDTH CV 13.2 % (11.5-14.5); RED CELL DISTRIBUTION WIDTH SD 44.8 fL (36.4-46.3); WHITE BLOOD COUNT 12.21 K/uL (4.8-10.8)
[2018-04-13 10:29] LABS: PTT PATIENT 23.8 SECONDS (21.0-31.0)
[2018-04-13 10:41] LABS: ALBUMIN 3.3 gm/dl (3.4-5.0); CALCIUM 9.8 mg/dl (8.5-10.1); CREATININE 0.81 mg/dl (0.60-1.20); POTASSIUM 4.4 mmol/L (3.5-5.1); TOTAL PROTEIN 7.2 gm/dl (6.4-8.2)
[2018-04-13 10:57] VITALS: O2SAT 99
--- NOTE | 2018-04-13 12:01 | DIAGNOSTIC IMAGING REPORT ---
CERVICAL SPINE W/O CT DOSE: 1356.81 mGy.cm CLINICAL HISTORY: 83 years-old Female with EVALUATE FOR TRAUMA/INJURY. Acute neck pain status post trauma COMPARISON: CT cervical spine 04/10/2018. TECHNIQUE: Multiple axial CT images of the cervical spine were obtained without contrast. A dose lowering technique was utilized adhering to the principles of ALARA. FINDINGS: No acute cervical spine fracture or subluxation. Mastoid air cells and middle ear cavities are clear. Unchanged grade 1 anterolisthesis C3 on C4 secondary to facet disease. Multilevel intervertebral disc space narrowing with spondylitic spurring and facet arthrosis redemonstrated which is unchanged from comparison study 04/10/2018. Increased kyphotic curvature of the thoracic spine limits of attenuation of the central canal and neuroforamen. The bones appear moderately demineralized. No pneumothorax. Heterogeneous 2.4 cm nodule of the right thyroid with nodules seen about the left thyroid lobe. Atherosclerosis of the carotid vasculature. IMPRESSION: No acute cervical spine fracture or subluxation. The above report was generated using voice recognition software. It may contain grammatical, syntax or spelling errors. Electronically signed by: Vipin Lima M.D. 04/13/2018 11:59 AM Dictated Date/Time: 04/13/2018 11:55 AM
--- NOTE | 2018-04-13 12:02 | DIAGNOSTIC IMAGING REPORT ---
CT OF THE HEAD WITHOUT CONTRAST CLINICAL HISTORY: Fall. COMPARISON STUDY: Head CT April 10, 2018. TECHNIQUE: Helical axial images of the head were obtained without IV contrast. Automated exposure control was utilized for the study. A dose lowering technique was utilized adhering to the principles of ALARA. FINDINGS: No acute intracranial hemorrhage, midline shift or mass effect is present. Ventricular system is unremarkable for age. Basilar cisterns are patent. There are are no extra-axial collections. An old right and CTA territory infarct within several malacia is noted. This is unchanged. No calvarial fracture is identified. Visualized portions of the sinuses and mastoid air cells are clear. There is a right periorbital contusion. There is no retrobulbar hematoma. Right globe is intact. IMPRESSION: 1. No acute intracranial findings. 2. Old right MCA territory infarct. 3. Right periorbital soft tissue swelling/contusion right globe intact with no retrobulbar hematoma. Electronically signed by: Dejan Noyola M.D. 04/13/2018 12:01 PM Dictated Date/Time: 04/13/2018 11:53 AM
--- NOTE | 2018-04-13 12:11 | DIAGNOSTIC IMAGING REPORT ---
MAXILLOFACIAL CT WITHOUT CONTRAST CLINICAL HISTORY: EVALUATE FOR TRAUMA/INJURY COMPARISON STUDY: Head CT April 10, 2018. TECHNIQUE: A maxillofacial CT was performed without IV contrast. Coronal and sagittal reformats were viewed. A dose lowering technique was utilized adhering to the principles of ALARA. FINDINGS: Right periorbital soft tissue swelling consistent with a contusion. The right globe is intact. There is no retrobulbar hematoma. There is no acute facial fracture. Alignment of the temporomandibular joints is anatomic. The head CT will be reported separately. There is minimal sinus mucosal thickening. IMPRESSION: 1. No acute facial fracture. 2. Right periorbital soft tissue swelling consistent with a contusion. Right globe intact with no retrobulbar hematoma. Electronically signed by: Dejan Noyola M.D. 04/13/2018 12:10 PM Dictated Date/Time: 04/13/2018 12:05 PM
[2018-04-13] MEDS ORDERED: FENTANYL CITRATE INJ 50 MCG/1 ML 2 ML VIAL IV ONE (13:00)
[2018-04-13 18:07] VITALS: BP 125/66; PULSE 79; TEMP 36.7; O2SAT 100
== END 2018-04-13 18:07 | disposition other institution (70) ==
LOC: EDBD 08:47 → C.EDA 08:48
DX: S40.211A Abrasion of right shoulder, initial encounter (principal); S00.83XA Contusion of other part of head, initial encounter; S50.11XA Contusion of right forearm, initial encounter; S50.12XA Contusion of left forearm, initial encounter; W19.XXXA Unspecified fall, initial encounter; Y92.129 Unspecified place in nursing home as the place of occurrence of the external cause; F03.90 Unspecified dementia, unspecified severity, without behavioral disturbance, psychotic disturbance, mood disturbance, and anxiety; R40.2412 Glasgow coma scale score 13-15, at arrival to emergency department; Z91.81 History of falling; Z87.39 Personal history of other diseases of the musculoskeletal system and connective tissue; Z87.891 Personal history of nicotine dependence